=== PATIENT | female | born 1950 | race Caucasian/White ===

== ENCOUNTER → 2017-06-24 | Outpatient (CLI) | payer MEDICARE, OTHER ==
[~2017-06-24] MED LIST: CHOL10002; DICL25ER TD; DOXY100 PO; DULO30 PO; EZET10-40 PO; FISH1000 PO; FLUO20 PO; FURO20 PO; Flonase 0.05% N16 GM; LEVOTHYROXINE; LISI20 PO; MECL25 PO; MILN100T; Synthroid/Lev0.05 MG PO; VICODIN 5-3001 EACH PO; [UNRECOGNIZED DRUG - OTHER]; [UNRECOGNIZED DRUG - OTHER] TD
== END ==
LOC: LAB 17:33 → LAB SHORT 17:33
DX: N39.0 Urinary tract infection, site not specified (principal); R35.0 Frequency of micturition
CPT/HCPCS: 87077; 87086; 87186

== ENCOUNTER → 2017-10-29 | Outpatient (CLI) | payer MEDICARE, OTHER ==
[2017-10-31 15:08] LABS: HPV 16 Negative (Negative); HPV 18 Negative (Negative); HPV OTHER HR TYPES Negative (Negative)
== END | disposition home or self-care (01) ==
LOC: LAB 17:30 → LAB SHORT 17:30
PROVIDERS: Obstetrics & Gynecology Gynecology
DX: Z12.72 Encounter for screening for malignant neoplasm of vagina (principal)
CPT/HCPCS: 87624; G0123

== ENCOUNTER → 2018-03-19 | Outpatient (CLI) | payer MEDICARE, OTHER | END | disposition home or self-care (01) | LOC: LAB SHORT 08:42 → PLD 08:42 | DX: L70.5 Acne excoriee (principal) | CPT/HCPCS: 88305; 88312 ==

== ENCOUNTER 2018-05-29 20:49 | Emergency (ER) | payer MEDICARE, OTHER ==
[~2018-05-29] VITALS: Ht 154.9 cm; Wt 73.9 kg
[~2018-05-29 20:49] MED LIST changes: +LEVSOD50 PO; -LISI20 PO; -Synthroid/Lev0.05 MG PO; +Zestril30 MG PO
[2018-05-29] MEDS ORDERED: Norco 5-325 Ta1 EACH PO (21:25)
[2018-05-29] MEDS ORDERED: Prozac40 MG PO (21:27)
== END 2018-05-29 22:35 | disposition home or self-care (01) ==
LOC: ER 20:49
DX: S51.811A Laceration without foreign body of right forearm, initial encounter (principal); W22.8XXA Striking against or struck by other objects, initial encounter; Z88.8 Allergy status to other drugs, medicaments and biological substances; Z79.899 Other long term (current) drug therapy; G43.909 Migraine, unspecified, not intractable, without status migrainosus
CPT/HCPCS: 12011; 90471; 90714; 99282-25

== ENCOUNTER → 2018-07-30 | Outpatient (CLI) | payer MEDICARE, OTHER ==
[~2018-07-30] MED LIST changes: +Norco 5-325 Ta1 EACH PO; +Prozac40 MG PO
== END | disposition home or self-care (01) ==
LOC: LAB 18:50 → LAB SHORT 18:50
DX: J02.9 Acute pharyngitis, unspecified (principal)
CPT/HCPCS: 87081

== ENCOUNTER → 2020-05-24 | Outpatient (CLI) | payer MEDICARE, OTHER | LOC: LAB SHORT 17:52 → PLD 17:52 | DX: N39.0 Urinary tract infection, site not specified (principal) | CPT/HCPCS: 87086 ==

== ENCOUNTER → 2021-06-22 | Outpatient (CLI) | payer MEDICARE, OTHER ==
[2021-06-22 19:06] LABS: G. vaginalis (DNA Probe) Positive (NEGATIVE); T. vaginalis (DNA Probe) Negative (NEGATIVE)
[2021-06-22 19:07] LABS: Candida species (DNA Probe) Negative (NEGATIVE)
== END ==
LOC: LAB 16:50 → LAB SHORT 16:50
PROVIDERS: Physician Assistant
DX: R30.0 Dysuria (principal)
CPT/HCPCS: 87086; 87480; 87510; 87660

== ENCOUNTER → 2022-09-24 | Outpatient (CLI) | payer OTHER | LOC: LAB SHORT 14:04 → LAB 14:04 | DX: N39.0 Urinary tract infection, site not specified (principal) | CPT/HCPCS: 87077; 87086; 87186 ==

== ENCOUNTER 2024-02-10 07:58 | Day surgery (SDC) | payer OTHER ==
[~2024-02-10] VITALS: Ht 154.9 cm; Wt 171.0 kg
[~2024-02-10 07:58] MED LIST changes: +Lactated Ringer's 1,000 ML IV ONE
[2024-02-10] MEDS ORDERED: ZOCOR20 MG (08:40)
[2024-02-10] MEDS ORDERED: Lactated Ringer's 1,000 ML IV ONE (08:58)
[2024-02-10] MEDS ORDERED: propofoL 50 ML IV ONE (08:59)
[2024-02-10 10:46] VITALS: BP 150/66
== END 2024-02-10 10:17 | disposition home or self-care (01) ==
LOC: ORSCSDS 07:58
PROVIDERS: Surgery
PROC: 0DJD8ZZ Inspection of Lower Intestinal Tract, Via Natural or Artificial Opening Endoscopic (ICD-10-PCS; principal; 2024-02-10 09:30)
DX: Z12.11 Encounter for screening for malignant neoplasm of colon (principal); E03.9 Hypothyroidism, unspecified; I12.9 Hypertensive chronic kidney disease with stage 1 through stage 4 chronic kidney disease, or unspecified chronic kidney disease; N18.31 Chronic kidney disease, stage 3a; F32.A Depression, unspecified; E66.9 Obesity, unspecified; Z68.32 Body mass index [BMI] 32.0-32.9, adult; Z79.899 Other long term (current) drug therapy
CPT/HCPCS: J2704; J7120

== ENCOUNTER → 2024-04-27 | Outpatient (CLI) | payer OTHER ==
[~2024-04-27] MED LIST changes: -Lactated Ringer's 1,000 ML IV ONE; +ZOCOR20 MG
[2024-04-27 16:16] LABS: Source, Urine Clean Catch
[2024-04-27 18:50] LABS: Appearance, Urine Hazy (Clear); Blood, Urine Neg (Neg); Glucose Qualitative, Urine Neg (Neg); Ketones, Urine Neg (Neg); Leukocyte Esterase, Urine 1+ (Neg); Nitrite, Urine Pos (Neg); Protein, Urine 1+ (Neg); Urobilinogen, Urine 3+ (Normal); pH, Urine 6.5 (5.0-8.0)
[2024-04-27 19:07] LABS: Bilirubin, Urine 3+ (Neg)
[2024-04-27 19:08] LABS: Color, Urine Orange (P-Yellow)
[2024-04-27 19:09] LABS: Red Blood Cells, Urine 0-2 /hpf (0-2); Squamous Epithelial Cells Many /hpf (Few)
[2024-04-27 19:10] LABS: Bacteria Many /hpf
[2024-04-27 19:11] LABS: Amorphous Light (0-Heavy); Mucus Light (0-Heavy); Transitional Epithelial Cells Rare /hpf (0-Rare)
== END | disposition home or self-care (01) ==
LOC: LAB 16:15 → LAB SHORT 16:15
PROVIDERS: Hospitalist
DX: R39.9 Unspecified symptoms and signs involving the genitourinary system (principal)
CPT/HCPCS: 81001; 87077; 87086; 87186